=== PATIENT | male | born 1975 | race Caucasian/White ===

== ENCOUNTER → 2019-11-01 16:15 | Outpatient (BNVA) | payer SELFPAY | PROVIDERS: Family Provider Nurse Practitioner Family; Visit Provider Nurse Practitioner Family | DX: K21.9 Gastro-esophageal reflux disease without esophagitis (principal); Z79.899 Other long term (current) drug therapy; N40.0 Benign prostatic hyperplasia without lower urinary tract symptoms; R53.83 Other fatigue; E55.9 Vitamin D deficiency, unspecified; G56.03 Carpal tunnel syndrome, bilateral upper limbs; G56.00 Carpal tunnel syndrome, unspecified upper limb; M50.30 Other cervical disc degeneration, unspecified cervical region | CPT/HCPCS: 80053; 80061; 81001; 82306; 83036; 84443; 85025; G0103 ==

== ENCOUNTER 2019-11-05 14:02 | Outpatient (CLI) | payer SELFPAY ==
--- NOTE | 2019-11-05 14:10 | XR_ITS ---
WS: [id number] XR cervical spine fl/ex [id number] REASON FOR EXAM: numbness and tingling FINDINGS: Lateral projection of the cervical spine was normal. There is normal flexion-extension views. XR/XR cervical spine fl/ex [id number] IMPRESSION: Negative lateral cervical spine with normal flexion-extension views.
== END 2019-11-05 14:03 | disposition home or self-care (01) ==
LOC: RAD 14:08
PROVIDERS: Family Provider Nurse Practitioner Family; Visit Provider Nurse Practitioner Family
DX: M50.30 Other cervical disc degeneration, unspecified cervical region (principal); R20.0 Anesthesia of skin
CPT/HCPCS: 72040

== ENCOUNTER → 2019-12-19 13:53 | Outpatient (BNVA) | payer SELFPAY | PROVIDERS: Family Provider Nurse Practitioner Family; PCP Nurse Practitioner Family; Visit Provider Specialist | DX: G56.03 Carpal tunnel syndrome, bilateral upper limbs (principal); Z87.891 Personal history of nicotine dependence | CPT/HCPCS: 95910 ==

== ENCOUNTER 2019-12-31 07:38 | Day surgery (SDC) | payer SELFPAY ==
[2019-12-28 12:56] VITALS: BMI 34.9
[2019-12-31 07:52] VITALS: BP 116/68; PULSE 51; RESP 18; TEMP 36.2; O2SAT 99
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
[2019-12-31] MEDS: sodium chloride 0.9% 1,000 ML 30 ML IV (08:15)
--- NOTE | 2019-12-31 09:04 | W.PM.OPSUD ---
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
--- NOTE | 2019-12-31 09:26 | PM.OP2 ---
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 Surgeon: Lopez Garnica Estimated blood loss (mL): 5 Complications: None. Post-op Plan: Home per Ambulatory Surgery protocol. Condition: stable Disposition: same day Coding Level of Care Code Acute Dried Yeast Supervisor for Yvonne Schulte
[2019-12-31] MEDS: neomycin-poly-bacitracin oint 28 gm 1 APPLIC TOPICAL (09:50)
[2019-12-31 10:15] VITALS: BP 100/57; PULSE 64; RESP 18; TEMP 36.1; O2SAT 92
[2019-12-31 10:46] VITALS: BP 100/60; PULSE 58; RESP 18; O2SAT 99
--- NOTE | 2019-12-31 13:05 | P.OP_ITS ---
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 Post-op diagnosis: same Procedure Done: Open release of the median nerve at the left wrist. Pathology: none sent Surgeon: Lopez Garnica Anesthesia: MAC Estimated blood loss (mL): 5 IV fluids (mL): 600 Complications: None Condition: stable Disposition: same day Brief History: The patient reports bilateral upper extremity symptoms that have persisted/progressed over approximately 18 months. He reports left hand symptoms are more prominent than right. He is [id number], and works as a akers. He has utilized wrist splints, with limited benefit. Electrodiagnostic studies confirmed median nerve entrapment at the wrists, left > right. After review of options, with the risks/potential benefits/rationale for each, he requested to proceed with surgical intervention on the left wrist. Procedure: After routine preoperative evaluation and informed consent were obtained, the patient was taken to the Operating Room and positioned supine on the operating table. Anesthesia personnel monitored the patient, and maintained intravenous sedation. The left upper extremity was extended on an arm board. The proposed palmar skin incision was marked with a sterile skin marker, beginning near the wrist crease and extending distally along a palmar crease to the base of the thumb. The left upper extremity was scrubbed with Betadine and prepped with DuraPrep from the fingertips to the axilla. A sterile stockinette was placed over the left upper extremity. The patient was draped with sterile towels and drapes. An opening was fashioned in the sterile stockinette over the palmar aspect of the left hand. Ioban surgical barrier was applied. The proposed incision site was infiltrated with 1% Xylocaine with Epinephrine. A skin incision was made with a sharp knife and carried down into the subcutaneous tiss ues. The markedly thickened transverse carpal ligament was identified and divided over the course of the median nerve in the palm. The nerve was directly visualized as the ligament was divided. Decompression was extended distally until the palmar fat pad was encountered. Proximally, the decompression was extended above the wrist crease utilizing fine Metzenbaum scissors. Decompression was verified to be adequate for a distance of greater than 2 centimeters proximal to the wrist crease. Epineural adhesions were identified, and addressed with limited epineurolysis. At the completion of the dec ompression, there was no evidence of residual impingement or tethering of the median nerve at the surgical site. The wound was then copiously irrigated with antibiotic irrigation. Hemostasis was ensured with the bipolar electrocautery. Wound closure was performed as a single layer utilizing 4-0 Nylon in a simple interrupted fashion. Antibiotic ointment was placed along the incision line. A bulky hand dressing was fashioned utilizing Kerlix fluffs, a Kerlix wrap, and an BRIAN/elastic bandage. The patient was transferred onto the transport cart and returned to the Ambulatory Surgery Area for discharge home, as per the Ambulatory Surgery protocol. The patient tolerated the procedure well. All sponge, needle and instrument counts were correct at the completion of the procedure.
== END 2019-12-31 10:59 | disposition home or self-care (01) ==
PROVIDERS: Family Provider Nurse Practitioner Family; PCP Nurse Practitioner Family; Visit Provider Specialist
PROC: (CPT 64721; principal; 2019-12-31 09:00)
DX: G56.02 Carpal tunnel syndrome, left upper limb (principal); K21.9 Gastro-esophageal reflux disease without esophagitis; Z87.891 Personal history of nicotine dependence
CPT/HCPCS: 64721; 12345; J0690; J2001; J2250; J2405; J2765; J3010; J3490; J7030

== ENCOUNTER 2020-02-13 12:43 | Emergency (ER) | payer SELFPAY ==
[2020-02-13 12:45] VITALS: BP 137/78; PULSE 88; RESP 18; TEMP 36.2; O2SAT 95; BMI 33.4
--- NOTE | 2020-02-13 13:01 | US_ITS ---
WS: [id number] RIGHT UPPER QUADRANT ULTRASOUND HISTORY: RUQ abd pain COMPARISON: Chest CT 06/06/2013 Liver: 20.8 cm in length. Liver is mildly enlarged. There is a hypoechoic nodule in the RIGHT lobe of the liver measuring 1.8 x 1.7 x 1.8 cm. On the prior chest CT there is a hypervascular lesion in the RIGHT lobe of the liver. This probably corresponds to the same lesion. No bile duct dilatation. Gallbladder: Normally distended gallbladder with no stones or wall thickening. CBD: 0.5 cm Pancreas: Normal size and echogenicity. Right kidney: 14.2 cm in length. Normal size kidney. Simple cyst in the lower pole measures 4.2 x 3.9 x 3.5 cm. Aorta and IVC: Unremarkable. No ascites. US/US gall bladder [id number] IMPRESSION: 1. Normal gallbladder. 2. Hypoechoic mass in the RIGHT lobe of the liver measures 1.8 x 1.7 x 1.8 cm. This may be the same hyperechoic lesion seen on the CT from 06/06/2013. Not de finitely concordant. Recommend [address] evaluation of the liver. Differential includes atypical hemangioma, metastatic disease and primary lesion. 3. Simple cyst RIGHT kidney with a maximum diameter 4.2 cm.
--- NOTE | 2020-02-13 13:02 | XRR_ITS ---
PROCEDURE INFORMATION: Exam: XR Chest, 1 View Exam date and time: 02/13/2020 2:09 PM Age: 44 years old Clinical indication: Cough and dyspnea and other: Abd pain; Additional info: Dyspnea/cough. Also has abdomen pain TECHNIQUE: Imaging protocol: XR of the chest Views: 1 view. COMPARISON: No relevant prior studies available. FINDINGS: Lungs: Unremarkable. No consolidation. Pleural space: Unremarkable. No pleural effusion. No pneumothorax. Heart/Mediastinum: Unremarkable. No cardiomegaly. Bones/joints: Unremarkable. XR/XR chest 1V portable [id number] IMPRESSION: No acute findings.
--- NOTE | 2020-02-13 13:17 | ED_ITS ---
HPI - Abdominal Pain General: Chief Complaint: Abdominal Pain Stated Complaint: abd pain/d Time Seen by Provider: 02/13/20 12:44 History of Present Illness: HPI narrative: 24-year-old male comes in complaining of nausea and diarrhea with an upset stomach epigastric pain right upper quadrant pain for the last 5 or 6 days that he tends to eat or drink he gets worse. He had similar symptoms in the past when he is certain meats fried foods pizza etc. or even drinks particular alcohols he gets severe nausea diarrhea and epigastric discomfort. He is on lansoprazole for dyspepsia. He not been any antibiotics recently he does not notice any blood is not really thrown up at all he describes abdominal pain is very cramping in nature he did have a little bit of a fever when it first started. Its resolved he is not had any dysuria urgency or frequency denies any medication hematemesis or coffee- ground emesis it does hurt to take a very deep breath. He denies any recent illness or upper respiratory symptoms. MD elicited complaint: abdominal pain Onset (ago): day(s) (-) Location: RUQ Severity: severe Quality: cramping and aching Radiation: RUQ Migration to: epigastric and R flank Exacerbating factors: eating Relieving factors: nothing Associated Symptoms: Denies bloating, chills, coffee ground emesis, constipation, diarrhea, dysuria, fever(s), hematochezia, hematemesis, melena, nausea and vomiting Review of Systems Const: Denies: fever(s), chills, body aches, change in appetite, fatigue or malaise ENMT: Denies: throat pain, ear or mastoid pain, nasal discharge or nasal congestion Card: Denies: chest pain, edema, dyspnea on exertion or orthopnea Resp: Denies: dyspnea, productive cough or non-productive cough GI: Denies: abdominal pain, nausea, vomiting, hematemesis, coffee ground emesis, diarrhea, constipation, bloating, hematochezia or melena : Denies: flank pain, dysuria, urinary frequency or urinary urgency Skin/Breast: Denies: rash or pruritus PFSH ED PFSH: Medical History Carpal tunnel syndrome DDD (degenerative disc disease), cervical GERD (gastroesophageal reflux disease) Ulnar nerve entrapment at right elbow Vitamin D deficiency Surgical History History of knee surgery History of shoulder surgery History of tonsillectomy Family History Mother Heart disease Father Cancer Social History Smoking and tobacco status: never smoked Alcohol intake: never Lives independently: Yes Household members: spouse Marital status: Current occupational status: employed Current occupation: [employer] History of recent travel: No Physical Exam Const: COMMON NORMALS: no acute distress GENERAL APPEARANCE: cooperative and comfortable ORIENTATION/CONSCIOUSNESS: Yes awake, Yes oriented to person, Yes oriented to place and Yes oriented to time HENMT: COMMON NORMALS: normocephalic, atraumatic, hearing grossly normal bilaterally, external ears normal, EAC's normal, TM's normal bilaterally, Normal nasal mucous membranes and turbinates present, moist oral mucous membranes and oropharynx normal HEAD & SCALP: normocephalic and atraumatic NOSE: Normal nasal mucous membranes and turbinates present EXTERNAL EAR: Yes external ears normal EXTERNAL AUDITORY CANAL: EAC's normal TYMPANIC MEMBRANE: TM's normal bilaterally Eye: COMMON NORMALS: Equal, round and reactive pupils present, EOMs intact bilaterally, conjunctivae normal and no scleral icterus CONJUNCTIVA: Yes conjunctivae normal PUPIL: Yes Equal, round and reactive pupils present Neck/C-Spine: COMMON NORMALS: full ROM, no lymphadenopathy, supple and no JVD Lymph: LYMPHATIC: no lymphadenopathy noted and no lymphedema noted Resp: COMMON NORMALS: normal respiratory effort, No retractions, No use of accessory muscles and clear to auscultation bilaterally AUSCULTATION: clear to auscultation bilaterally Cardio: COMMON NORMALS: no JVD, regular rate, regular rhythm and No murmurs present (Cardio) RATE: regular rate RHYTHM: regular rhythm GI: COMMON NORMALS: No hepatosplenomegaly present PALPATION: Yes Tenderness to palpation present (GI) (Positive Bedolla sign) Details: RUQ, No Guarding due to palpation present (GI) and Yes No hepatosplenomegaly present Extremity: COMMON NORMALS: normal to inspection, capillary refill normal, no clubbing, cyanosis or edema, no calf tenderness and no pedal edema Neuro: SENSORIUM/ORIENTATION: Yes oriented to person, Yes oriented to place and Yes oriented to time Skin: COMMON NORMALS: no rashes or lesions noted GENERAL SKIN EXAM: no rashes or lesions noted Course Vital Signs: Vital signs: Vital Signs Temperature 97.1 F L 02/13/20 12:45 Pulse Rate 82 02/13/20 15:45 Respiratory Rate 18 02/13/20 15:45 Blood Pressure 120/91 02/13/20 15:45 Pulse Oximetry 95 02/13/20 15:45 MDM - Abdominal Pain MDM Narrative: Medical decision making narrative: Reviewed findings with the patient. At this point he does not appear to have acute cholecystitis I do wonder if he has biliary dyskinesia. We will go ahead and discharge him home set up for a HIDA scan and referral to surgery if has recurrence or worsening symptoms return. Discussed dietary changes to make to avoid worsening of symptoms. Lab Data: Labs: Lab Results 02/13/20 02/13/20 02/13/20 Range/Units 13:45 13:45 13:45 WBC 6.1 (4.0-10.0) 10^3/ uL RBC 5.03 (4.1-5.3) 10^6/u L Hgb 14.1 (11.7-16.6) g/dL Hct 42.9 (42.0-52.0) % MCV 85.3 (80-94) fL MCH 28.0 (28.0-34.0) pg MCHC 32.9 (30.0-36.0) g/dL RDW 12.5 (12.1-15.1) % Plt Count 182 (130-400) 10^3/c mm MPV 9.6 (7.4-10.4) fL Neut % (Auto) 56.6 % Lymph % (Auto) 28.7 % [place] % (Auto) 7.8 % Eos % (Auto) 6.0 % Baso % (Auto) 0.7 % Neut # (Auto) 3.5 (1.8-7.7) 10^3/u L Lymph # (Auto) 1.8 (0.8-4.8) 10^3/u L [place] # (Auto) 0.5 (0.2-0.9) 10^3/u L Eos # (Auto) 0.4 (0.0-0.8) 10^3/u L Baso # (Auto) 0.0 (0.0-0.1) 10^3/u L Nucleated RBC % (a uto) 0 % Nucleated RBCs # 0.0 /100WBC Sodium 140 (136-145) mmol/L Potassium 3.9 (3.5-5.1) mmol/L Chloride 105 (98-107) mmol/L Carbon Dioxide 25 (22-29) mmol/L Anion Gap 13.9 (5-19) BUN 13 (6-20) mg/dL Creatinine 0.7 (0.7-1.2) mg/dL GFR Calculation 121.4 (90-130) mL/min Glucose 92 (65-115) mg/dL Calculated Osmolal ity 286 (285-295) mOsm/k g Lactate 0.9 (0.5-2.2) mmol/L Calcium 9.2 (8.5-10.5) mg/dL Total Bilirubin 0.9 (0.15-1.2) mg/dL AST 22 (0-40) U/L ALT 22 (0-41) U/L Alkaline Phosphata se 66 (40-130) IU/L Total Protein 6.6 (6.6-8.7) g/dL Albumin 4.5 (3.5-5.2) g/dL Globulin 2.1 (1.3-4.6) g/dL Lipase 19 (13-60) U/L Urine Color (Yellow) Urine Appearance (CLEAR) Urine pH (5-7) Ur Specific Gravit y (1.005-1.030) Urine Protein (Negative) Urine Glucose (UA) (Normal) Urine Ketones (Negative) Urine Blood (Negative) Urine Nitrate (Negative) Urine Bilirubin (NEGATIVE) Urine Urobilinogen (Negative) mg/dL Ur Leukocyte Zarina ase (Negative) 02/13/20 Range/Units 14:17 WBC (4.0-10.0) 10^3/ uL RBC (4.1-5.3) 10^6/u L Hgb (11.7-16.6) g/dL Hct (42.0-52.0) % MCV (80-94) fL MCH (28.0-34.0) pg MCHC (30.0-36.0) g/dL RDW (12.1-15.1) % Plt Count (130-400) 10^3/c mm MPV (7.4-10.4) fL Neut % (Auto) % Lymph % (Auto) % [place] % (Auto) % Eos % (Auto) % Baso % (Auto) % Neut # (Auto) (1.8-7.7) 10^3/u L Lymph # (Auto) (0.8-4.8) 10^3/u L [place] # (Auto) (0.2-0.9) 10^3/u L Eos # (Auto) (0.0-0.8) 10^3/u L Baso # (Auto) (0.0-0.1) 10^3/u L Nucleated RBC % (a uto) % Nucleated RBCs # /100WBC Sodium (136-145) mmol/L Potassium (3.5-5.1) mmol/L Chloride (98-107) mmol/L Carbon Dioxide (22-29) mmol/L Anion Gap (5-19) BUN (6-20) mg/dL Creatinine (0.7-1.2) mg/dL GFR Calculation (90-130) mL/min Glucose (65-115) mg/dL Calculated Osmolal ity (285-295) mOsm/k g Lactate (0.5-2.2) mmol/L Calcium (8.5-10.5) mg/dL Total Bilirubin (0.15-1.2) mg/dL AST (0-40) U/L ALT (0-41) U/L Alkaline Phosphata se (40-130) IU/L Total Protein (6.6-8.7) g/dL Albumin (3.5-5.2) g/dL Globulin (1.3-4.6) g/dL Lipase (13-60) U/L Urine Color Yellow (Yellow) Urine Appearance Clear (CLEAR) Urine pH 5 (5-7) Ur Specific Gravit y 1.020 (1.005-1.030) Urine Protein Neg (Negative) Urine Glucose (UA) Norm (Normal) Urine Ketones Negative (Negative) Urine Blood Neg (Negative) Urine Nitrate Negative (Negative) Urine Bilirubin Neg (NEGATIVE) Urine Urobilinogen Neg (Negative) mg/dL Ur Leukocyte Zarina ase Negative (Negative) Discharge Plan Discharge Patient Disposition: Home, Self-Care Clinical Impression: Biliary colic symptom Condition: Stable Prescriptions: New hydrocodone-acetaminophen 5-325 mg tablet 1 tab PO Q6H PRN (Reason: pain) Qty: 20 RF: 0 Zofran 4 mg tablet 4 mg PO Q6H PRN (Reason: nausea and vomiting) Qty: 20 RF: 0 Dexilant 60 mg capsule,biphase delayed releas 60 mg PO DAILY 56 Days Qty: 60 RF: 0 Discontinued pantoprazole [Protonix] 40 mg tablet,delayed release (DR/EC) 40 mg PO DAILY 30 Days Qty: 30 RF: 2 No Action cholecalciferol (vitamin D3) 25 mcg (1,000 unit) capsule 25 mcg PO DAILY RF: 0 loratadine [Allergy Relief (loratadine)] 10 mg tablet 10 mg PO DAILY RF: 0 (DME) blood-glucose meter Kit See Rx Instructions .ROUTE .MEDSUPPLY Qty: 1 RF: 5 Aleve 220 mg Tablet See Rx Instructions .ROUTE .COMPLEX RF: 0 Discharge Orders: Discharge Order (Routine); Ordered 02/13/20 Ordered By: Rojas Solano Referrals: MICHELLE Gamboa, [facility] [facility] [Primary Care Provider] - Discharge Diet: Clear Liquid Discharge Activity: Resume usual activity Patient Instructions: Cholecystitis (ED), Abdominal Pain (ED) Activity Restrictions/Additional Instructions: Case management will call to get you set up for a HIDA scan and subsequent surgical evaluation Discharge Date/Time: 02/13/20 15:47 Coding Level of Care Code ED Financial Officer for Chg Fwd Exam Comprehensive
[2020-02-13 13:24] VITALS: RESP 18
[2020-02-13] MEDS: morphine 4 mg/mL SDV 1 mL 6 MG IVP (13:24)
[2020-02-13] MEDS: ondansetron 2 mg/ML SDV 2 mL 4 MG IVP (13:25)
[2020-02-13] MEDS: sodium chloride 0.9% 1,000 ML 999 ML IV (13:57)
[2020-02-13 14:03] LABS: Basophils % 0.7 %; Eosinophils # 0.4 10^3/uL (0.0-0.8); Hematocrit 42.9 % (42.0-52.0); Hemoglobin 14.1 g/dL (11.7-16.6); Lymphocytes # 1.8 10^3/uL (0.8-4.8); Lymphocytes % 28.7 %; Mean Corpuscular HGB Conc 32.9 g/dL (30.0-36.0); Mean Corpuscular Volume 85.3 fL (80-94); Mean Platelet Volume 9.6 fL (7.4-10.4); Monocytes # 0.5 10^3/uL (0.2-0.9); Monocytes % 7.8 %; Neutrophils # 3.5 10^3/uL (1.8-7.7); Neutrophils % 56.6 %; Nucleated Red Blood Cells % 0 %; Platelet Count 182 10^3/cmm (130-400); Red Blood Count 5.03 10^6/uL (4.1-5.3); Red Cell Distribution Width 12.5 % (12.1-15.1); White Blood Count 6.1 10^3/uL (4.0-10.0)
--- NOTE | 2020-02-13 14:05 | PC.NURSE ---
US COMPLETED PATIENT TOLERATED WELL
[2020-02-13 14:32] LABS: Lactate (Lactic Acid level) 0.9 mmol/L (0.5-2.2)
[2020-02-13 14:34] LABS: Alanine Aminotransferase 22 U/L (0-41); Albumin Level 4.5 g/dL (3.5-5.2); Alkaline Phosphatase 66 IU/L (40-130); Anion Gap 13.9 (5-19); Aspartate Amino Transferase 22 U/L (0-40); Blood Urea Nitrogen 13 mg/dL (6-20); Calcium 9.2 mg/dL (8.5-10.5); Carbon Dioxide 25 mmol/L (22-29); Chloride 105 mmol/L (98-107); Creatinine Clr Calc Pharmacy 150.9894; Globulin 2.1 g/dL (1.3-4.6); Glomerular Filtration Rate 121.4 mL/min (90-130); Glucose 92 mg/dL (65-115); Lipase 19 U/L (13-60); Osmolality Calculated 286 mOsm/kg (285-295); Potassium 3.9 mmol/L (3.5-5.1); Sodium 140 mmol/L (136-145); Total Bilirubin 0.9 mg/dL (0.15-1.2); Total Protein 6.6 g/dL (6.6-8.7)
[2020-02-13 15:02] LABS: Add Urine Microscopic? NO
[2020-02-13 15:36] LABS: Bilirubin Urine Neg (NEGATIVE); Blood Urine Neg (Negative); Glucose Urine UA Norm (Normal); Ketones Urine Negative (Negative); Leukocyte Esterase Urine Negative (Negative); Nitrate Urine Negative (Negative); Protein Urine Neg (Negative); Urine Appearance Clear (CLEAR); Urine Color Yellow (Yellow); Urobilinogen Urine Neg (Negative); pH Urine 5 (5-7)
[2020-02-13 15:45] VITALS: BP 120/91; PULSE 82; RESP 18; O2SAT 95
--- NOTE | 2020-02-14 10:35 | DCPLANNER ---
manager ct had message to schedule an outpatient hida scan and a follow up appointment for patient with general surgery. manager ct called patient to confirm that patient still wanted to have test ordered. manager ct called Portal Administrator, gave clinic patients information, pillowcase sewer also told clinic that patient is to have a follow up appointment scheduled after patient has a hida scan, and pillowcase sewer is ordering the hida scan. manager ct will call the clinic when the hida scan is ordered to schedule the followup appointment with general surgery.
--- NOTE | 2020-02-19 13:58 | DCPLANNER ---
Patient has a hida scan scheduled for Thursday, February 27, 2020 at 8:00. A letter was mailed to patient about the scheduled appointment. jewelry manager called [facility] to scheduled a followup appointment for patient after hida scan. jewelry manager spoke with Patricia, an appointment will be scheduled for patient, clinic will call patient with appointment information.
--- NOTE | 2020-02-20 12:18 | DCPLANNER ---
Patient has a follow up appointment for patient with [facility] for Wednesday, March 04, 2020 at 1:[address] Lockett. Clinic will call patient with appointment information.
--- NOTE | 2020-03-05 15:18 | DCPLANNER ---
Patient did attend hida scan and follow up appointment with [facility].
== END 2020-02-13 15:47 | disposition home or self-care (01) ==
PROVIDERS: Emergency Provider Family Medicine; PCP Nurse Practitioner Family
DX: K80.50 Calculus of bile duct without cholangitis or cholecystitis without obstruction (principal)
CPT/HCPCS: 12345; 36415; 71045; 76705; 80053; 81003; 83605; 83690; 85025; 96361; 96374; 96375; 99282; 99284; J2270; J2405; J7030

== ENCOUNTER 2020-02-27 08:29 | Outpatient (CLI) | payer SELFPAY ==
--- NOTE | 2020-02-27 08:36 | NM_ITS ---
WS: [id number] NUCLEAR MEDICINE HIDA SCAN WITH GALLBLADDER EJECTION FRACTION HISTORY: ABD PAIN COMPARISON: Gallbladder ultrasound 02/13/2020 TECHNIQUE: The patient was intravenously injected with 7.6 mCi of TC99m Mebrofenin. Immediate imaging over the right upper quadrant was followed by 5 minute image and additional images for a total of 60 minutes. Normal uptake of radiotracer throughout the liver. Activity identified in the gallbladder at 15 minutes and well distended by 60 minutes. Activity in the proximal small bowel was seen by 50 minutes. Good washout of the radiotracer from the liver by 60 minutes. The patient then drank 8 ounces of Ensure Plus. Ejection fraction at 70 minutes was 71%. Normal GB ej ection fraction is 35-75%. Post fatty meal symptoms: None. NM/NM hepatobiliary w phar* [id number] IMPRESSION: 1. Normal HIDA scan. 2. Normal gallbladder ejection fraction.
== END 2020-02-27 08:30 | disposition home or self-care (01) ==
LOC: RAD 08:31
PROVIDERS: PCP Nurse Practitioner Family; Visit Provider Family Medicine
DX: R10.9 Unspecified abdominal pain (principal)
CPT/HCPCS: 78227; A9537

== ENCOUNTER 2020-03-10 09:40 | Day surgery (SDC) | payer SELFPAY ==
[2020-03-07 13:21] VITALS: BMI 30.4
[2020-03-10] VITALS (15 sets, daily range): BP systolic 114–134; BP diastolic 68–85; PULSE 49–70; RESP 16–22; TEMP 36.2–36.7; O2SAT 93–99
--- NOTE | 2020-03-10 09:59 | W.PM.OPSUD ---
Surgery/Procedure H&P Update DATE OF PROCEDURE: March 10, 2020 DATE H&P PERFORMED: 03/04/20 H&P UPDATE INFORMATION: I have reviewed H&P completed within last 30 days, I have examined patient prior to procedure and No changes to prior documentation PREOP DIAGNOSIS: Chronic cholecystitis/GERD PLANNED PROCEDURE: Operation Date: 03/10/20 11:15 Proposed Procedures p EGD with poss biopsy [id number] K21.9 K80.20(Not Applicable) - Dylan Lockett MD s Laparoscopic Cholecystectomy poss open(Not Applicable) - Dylan Lockett MD
[2020-03-10] MEDS: sodium chloride 0.9% 1,000 ML 30 ML IV (10:09)
--- NOTE | 2020-03-10 10:34 | ANES.PREANE2 ---
Pre-Anesthetic Assessment Pre-Anesthetic Assessment: Height/Weight: Height 1.73 m Weight 90.718 kg Temp Pulse Resp BP Pulse Ox 97.6 F 63 16 134/81 94 03/10/20 09:59 03/10/20 09:59 03/10/20 09:59 03/10/20 09:59 03/10/20 09:59 Preop Diagnosis: Chronic cholecystitis/GERD Proposed Procedure: Operation Date: 03/10/20 11:15 Proposed Procedures p EGD with poss biopsy [id number] K21.9 K80.20(Not Applicable) - Dylan Lockett MD s Laparoscopic Cholecystectomy poss open(Not Applicable) - Dylan Lockett MD Familial anesthetic complications: none Was Beta Anushka taken within 24 hours: N/A Last intake: Intake Last Liquid Date 03/09/20 Last Liquid Time 21:00 Last Solid Date 03/09/20 Last Solid Time 21:00 Social: Social History: No alcohol and No tobacco Exam: Pre-Anes Outpt Exam: alert, oriented x 3, clear to auscultation bilaterally and regular rate & rhythm Airway: Cervical ROM: WNL MP: 2 Dentition: Chipped and Loose Pulmonary: Pulmonary: None reported CV/HEM: CV/HEM: None reported GI: GI: GERD Musc/skel: Musc/skel: OA/DJD Anesthetic Plan: ASA status: 1 Anesthesia: General Risk of > 500 ml blood loss (7ml/kg in children): No Meds/Allergies Current Medications: Current Medications Generic Name Dose Route Start Last Admin Trade Name Freq PRN Reason Stop Dose Admin Sodium Chloride 1,000 mls @ 30 ml s/hr 03/10/20 09:45 03/10/20 10:09 Sodium Chloride 0.9% IV 03/11/20 09:44 30 mls/hr .Q24H DONOVAN Administration PFSH Anesthesia PFSH: Medical History Carpal tunnel syndrome DDD (degenerative disc disease), cervical GERD (gastroesophageal reflux disease) Ulnar nerve entrapment at right elbow Vitamin D deficiency Surgical History History of knee surgery History of shoulder surgery History of tonsillectomy Family History Mother Heart disease Father Cancer Denies family history of Anesthesia complication Bleeding disorder Social History Smoking and tobacco status: never smoked Alcohol intake: never Lives independently: Yes Household members: spouse Marital status: Current occupational status: employed Current occupation: [employer] History of recent travel: No Data Anesthesia Cardiac Studies: No Data to Display
--- NOTE | 2020-03-10 11:56 | P.OP_ITS ---
Operative Report Date of procedure: March 10, 2020 Pre-op Diagnosis: Chronic cholecystitis/GERD Post-op Findings: Normal EGD Chronic cholecystitis Procedure Done: Esophagogastroduodenoscopy without biopsy Laparoscopic cholecystectomy Pathology: Gallbladder Surgeon: Dylan Lockett Anesthesia: General Estimated blood loss (mL): 10 Condition: stable Disposition: PACU Procedure: The patient was taken to the operating room and was intubated under general anesthesia. A bite-block was placed and the gastroscope was introduced and advanced up to the second portion of the duodenum and slowly withdrawn. The first and second portion of the duodenum was normal. The pylorus, antrum, fundus and body of the stomach was normal. Z line at 40 cm. There was no distal esophageal changes. The rest of the esophagus was normal and the gastroscope was withdrawn. After the antibiotic had been administered, the abdomen was prepped and draped in a sterile manner. Using a #15 blade, a 1 centimeter infraumbilical curvilinear incision was made and using an open Kurt technique the peritoneal cavity was entered. A 10 millimeter port was placed and 15 millimeters of pneumoperitoneum was created. A 10 millimeter, 30 degrees scope was then introduced. Three 5 millimeter ports were placed in the epigastric, midclavicular and the anterior axillary line two fingerbreadths below the costal margin on the right side under the direct visualization. Ratcheted forceps were introduced into the lateral most port and was used to retract the fundus of the gallbladder cephalad and using forceps the infundibulu m of the gallbladder was retracted laterally. Using L-hook cautery the peritoneum overlying the Calot's triangle was opened medially and laterally until the cystic duct and the cystic artery were skeletonized. Dissection was carried along the body of the gallbladder and after ensuring critical view of safety, 4 clips applied on the cystic duct and 3 clips applied on the cystic artery and cut leaving, 3 clips on the remaining portion of the duct and 2 clips on the remaining portion of the artery. The rest of the gallbladder was dissected off the liver using L-hook cautery. There was no bleeding or bile leaking noted from the gallbladder fossa and the clips appeared to be in place. An EndoCatch bag was introduced to remove the gallbladder. All the ports were removed under direct visualization and there was no bleeding noted from the port sites. The fascia of the umbilicus was closed using [id number] 0 Vicryl sutures and the subcutaneous tissue was approximated using 3-0 Vicryl sutures. The skin at all four ports were closed using 4-0 Monocryl and Dermabond. A total of 10 millimeters of 0.5% Marcaine was infiltrated around the port sites. The patient was stable throughout the procedure.
--- NOTE | 2020-03-10 12:12 | SUR.PHASEI ---
pt awakes earlier and c/o of pain to abd then back to sleep snoring resp HR 52 with no ectopy, vss. will let pt sleep on 8l mask for now.
[2020-03-10] MEDS: morphine 4 mg/mL SDV 1 mL 2 MG IVP ×2 (12:17→12:22)
[2020-03-10] MEDS: meperidine 50 mg/mL INJ 12.5 MG IVP (12:33)
--- NOTE | 2020-03-10 12:45 | SUR.PHASEI ---
PT SLEEPING , AWAKES EASILY TO VOICE, FACE SCALE 0 NOW, VSS ABD SOFT AND UNCHANGED REPORT TO OPS NURSE.
[2020-03-10] MEDS: HYDROcodone-acetaminophen 5-325 mg Tablet 1 TAB PO (13:09)
== END 2020-03-10 13:27 | disposition home or self-care (01) ==
PROVIDERS: PCP Nurse Practitioner Family; Visit Provider Surgery
PROC: 0DJ08ZZ Inspection of Upper Intestinal Tract, Via Natural or Artificial Opening Endoscopic (ICD-10-PCS; CPT 43235; principal; 2020-03-10 11:15)
PROC: 0FT44ZZ Resection of Gallbladder, Percutaneous Endoscopic Approach (ICD-10-PCS; CPT 47562; 2020-03-10 11:15)
DX: K81.1 Chronic cholecystitis (principal); K21.9 Gastro-esophageal reflux disease without esophagitis; M19.90 Unspecified osteoarthritis, unspecified site; Z79.891 Long term (current) use of opiate analgesic; E55.9 Vitamin D deficiency, unspecified
CPT/HCPCS: 43235; 47562; 12345; 88304; J0690; J1100; J2175; J2270; J2405; J2704; J2710; J3010; J3490; J3535; J7030

== ENCOUNTER → 2024-03-05 14:04 | Outpatient (BNVA) | payer OTHER, SELFPAY | PROVIDERS: PCP Nurse Practitioner Family; Visit Provider Specialist | DX: M19.012 Primary osteoarthritis, left shoulder | CPT/HCPCS: 73030 ==

== ENCOUNTER → 2024-12-17 15:37 | Outpatient (BNVA) | payer OTHER, SELFPAY | PROVIDERS: PCP Nurse Practitioner Family; Visit Provider Specialist | DX: M19.012 Primary osteoarthritis, left shoulder (principal) | CPT/HCPCS: 73030 ==